=== PATIENT | male | born 2000 | race African-American/Black ===

== ENCOUNTER 2020-06-14 10:49 | Emergency (ER) | payer OTHER ==
--- NOTE | 2020-06-14 12:08 | EDPHYS ---
Physician Documentation [facility] Name: Tesys Lou Age: 20 yrs Sex: Male : 2000 Arrival Date: 06/14/2020 Time: 10:53 Bed 7 Private MD: ED Physician Roland Vang HPI: 06/14 12:00 This 20 yrs old Black Male presents to ER via Ambulatory with complaints of Congestion, jr8 Fever. 12:00 The patient reports fever, with an emergency department temperature of 100 degrees jr8 Fahrenheit. Onset: The symptoms/episode began/occurred acutely, 2 day(s) ago. Modifying factors: The patient has had contact with sick friend. Associated signs and symptoms: Pertinent positives: sinus congestion, loss of taste. Severity of symptoms: At their worst the symptoms were mild in the emergency department the symptoms are unchanged. The patient has not experienced similar symptoms in the past. The patient has not recently seen a physician. Patient stated that he was in contact with friends who tested positive for COVID. Now having taste difference, fever, and sinus congestion . Historical: - Allergies: 11: NKDA; hb - Home Meds: 11: None [Active]; hb - PMHx: 11:01 ADD/ADHD; Anxiety; Bipolar disorder; MR; hb - PSHx: 11: None; hb - Immunization history:: Adult Immunizations up to date. - Social history:: Smoking status: Patient denies any tobacco usage or history of. ROS: 12:00 Eyes: Negative for injury, pain, redness, and discharge, Neck: Negative for injury, jr8 pain, and swelling, Cardiovascular: Negative for chest pain, palpitations, and edema, Respiratory: Negative for shortness of breath, cough, wheezing, and pleuritic chest pain, Abdomen/GI: Negative for abdominal pain, nausea, vomiting, diarrhea, and constipation, Back: Negative for injury and pain, MS/Extremity: Negative for injury and deformity, Skin: Negative for injury, rash, and discoloration, Neuro: Negative for headache, weakness, numbness, tingling, and seizure. 12:00 Constitutional: Positive for fever. 12:00 ENT: Positive for sinus congestion. Exam: 12:00 Eyes: Pupils equal round and reactive to light, extra-ocular motions intact. Lids and jr8 lashes normal. Conjunctiva and sclera are non-icteric and not injected. Cornea within normal limits. Periorbital areas with no swelling, redness, or edema. ENT: Nares patent. No nasal discharge, no septal abnormalities noted. Tympanic membranes are normal and external auditory canals are clear. Oropharynx with no redness, swelling, or masses, exudates, or evidence of obstruction, uvula midline. Mucous membranes moist. Neck: Trachea midline, no thyromegaly or masses palpated, and no cervical lymphadenopathy. Supple, full range of motion without nuchal rigidity, or vertebral point tenderness. No Meningismus. Cardiovascular: Regular rate and rhythm with a normal S1 and S2. No gallops, murmurs, or rubs. Normal PMI, no JVD. No pulse deficits. Respiratory: Lungs have equal breath sounds bilaterally, clear to auscultation and percussion. No rales, rhonchi or wheezes noted. No increased work of breathing, no retractions or nasal flaring. Abdomen/GI: Soft, non-tender, with normal bowel sounds. No distension or tympany. No guarding or rebound. No evidence of tenderness throughout. Back: No spinal tenderness. No costovertebral tenderness. Full range of motion. Skin: Warm, dry with normal turgor. Normal color with no rashes, no lesions, and no evidence of cellulitis. MS/ Extremity: Pulses equal, no cyanosis. Neurovascular intact. Full, normal range of motion. Neuro: Awake and alert, GCS 15, oriented to person, place, time, and situation. Cranial nerves II-XII grossly intact. Motor strength 5/5 in all extremities. Sensory grossly intact. Cerebellar exam normal. Normal gait. Vital Signs: 10:59 BP 134 / 69; Pulse 105; Resp 16; Temp 100(TE); Pulse Ox 100% on R/A; Weight 81.65 kg; hb Height 6 ft. 4 in. (193.04 cm); Pain 4/10; 12:15 BP 127 / 75; Pulse 85; Resp 17; Temp 98.9; Pulse Ox 100% ; bp 10:59 Body Mass Index 21.91 (81.65 kg, 193.04 cm) hb MDM: 11:13 Patient medically screened. jr8 12:00 Data reviewed: vital signs, nurses notes, lab test result(s), and as a result, I will jr8 discharge patient. Data interpreted: Pulse oximetry: on room air is 100 %. Interpretation: normal. Counseling: I had a detailed discussion with the patient and/or guardian regarding: the historical points, exam findings, and any diagnostic results supporting the discharge/admit diagnosis, lab results, the need for outpatient follow up, a family practitioner, to return to the emergency department if symptoms worsen or persist or if there are any questions or concerns that arise at home. 06/14 11:12 Order name: Strep jr8 06/14 11:43 Order name: COVID-19 jr8 Administered Medications: No medications were administered Disposition: 15:43 Co-signature as Attending Physician, Roland Vang MD I agree with the assessment and kdr plan of care. Disposition: 06/14/20 12:07 Discharged to Home. Impression: Viral infection, unspecified. - Condition is Stable. - Discharge Instructions: COVID-19. - Medication Reconciliation Form, Thank You Letter, Antibiotic Education, Prescription Opioid Use form. - Follow up: Private Physician; When: 1 week; Reason: Recheck today's complaints, Continuance of care, Re-evaluation by your physician. - Problem is new. - Symptoms have improved. Signatures: Dispatcher [employer] EDMS Roland Vang MD MD [facility] Boni Ramirez PA PA jr8 Alannah Sommers, RN RN Uvaldo Tomlinson RN RN bp Corrections: (The following items were deleted from the chart) 12:16 12:07 06/14/2020 12:07 Discharged to Home. Impression: Viral infection, unspecified. bp Condition is Stable. Forms are Medication Reconciliation Form, Thank You Letter, Antibiotic Education, Prescription Opioid Use. Follow up: Private Physician; When: 1 week; Reason: Recheck today's complaints, Continuance of care, Re-evaluation by your physician. Problem is new. Symptoms have improved. jr8
--- NOTE | 2020-06-14 12:08 | ER ---
Nurse's Notes [facility] Name: Tessy Lou Age: 20 yrs Sex: Male : 2000 Arrival Date: 06/14/2020 Time: 10:53 Bed 7 Private MD: Diagnosis: Viral infection, unspecified Presentation: 06/14 10:59 Chief complaint: Headache, sore throat, nonproductive cough, and sinus congestion x 4 hb days. Coronavirus screen: Patient reports a cough. Patient denies shortness of breath or difficulty breathing. Patient reports a measured and/or subjective temperature greater than 100.4F. Patient denies travel on a cruise ship or to a country the [facility] currently lists as an affected area. Patient denies contact with known and/or suspected case of COVID-19. Patient instructed to continue to wear a mask when interacting with others. Patient moved to private room, placed in contact and droplet isolation with eye protection until further assessment. Ebola Screen: No symptoms or risks identified at this time. Initial Sepsis Screen: Does the patient meet any 2 criteria? No. Patient's initial sepsis screen is negative. Does the patient have a suspected source of infection? No. Patient's initial sepsis screen is negative. Risk Assessment: Do you want to hurt yourself or someone else? Patient reports no desire to harm self or others. Onset of symptoms was June 10, 2020. 10:59 Method Of Arrival: Ambulatory hb 10:59 Acuity: ANTONI 3 hb Triage Assessment: 11:00 General: Appears in no apparent distress. comfortable, Behavior is cooperative, bp appropriate for age, anxious. Pain: Complains of pain in SORE THROAT. EENT: No deficits noted. Neuro: No deficits noted. Cardiovascular: No deficits noted. Respiratory: Breath sounds are clear bilaterally. GI: No signs and/or symptoms were reported involving the gastrointestinal system. : No signs and/or symptoms were reported regarding the genitourinary system. Derm: No deficits noted. Musculoskeletal: No deficits noted. Historical: - Allergies: 11: NKDA; hb - Home Meds: 11: None [Active]; hb - PMHx: 11:01 ADD/ADHD; Anxiety; Bipolar disorder; MR; hb - PSHx: 11: None; hb - Immunization history:: Adult Immunizations up to date. - Social history:: Smoking status: Patient denies any tobacco usage or history of. Screenin:00 Abuse screen: Denies threats or abuse. Denies injuries from another. Nutritional bp screening: No deficits noted. Tuberculosis screening: No symptoms or risk factors identified. Fall Risk None identified. Assessment: 11:00 General: SEE TRIAGE NOTE. Cardiovascular: Patient's skin is warm and dry. Respiratory: bp Airway is patent Respiratory effort is even, unlabored, Respiratory pattern is regular, symmetrical. 12:14 Reassessment: PT REFUSING COVID SWAB. PT D/C HOME AMBULATORY, DX WITH UNSPECIFIED VIRAL bp ILLNESS. Respiratory: Breath sounds are clear bilaterally. Vital Signs: 10:59 BP 134 / 69; Pulse 105; Resp 16; Temp 100(TE); Pulse Ox 100% on R/A; Weight 81.65 kg; hb Height 6 ft. 4 in. (193.04 cm); Pain 4/10; 12:15 BP 127 / 75; Pulse 85; Resp 17; Temp 98.9; Pulse Ox 100% ; bp 10:59 Body Mass Index 21.91 (81.65 kg, 193.04 cm) hb ED Course: 10:53 Patient arrived in ED. as 11:00 Triage completed. hb 11:00 Patient has correct armband on for positive identification. Bed in low position. Call bp light in reach. Side rails up X2. 11:01 Arm band placed on. 11:12 [facility]. jr8 11:12 Roland Vang MD is Attending Physician. jr8 11:21 Uvaldo Henley, RN is Primary Nurse. bp 12:15 No provider procedures requiring assistance completed. Patient did not have IV access bp during this emergency room visit. Administered Medications: No medications were administered Outcome: 12:07 Discharge ordered by . jr8 12:15 Discharged to home ambulatory. bp 12:15 Condition: stable 12:15 Discharge instructions given to patient, Instructed on discharge instructions, follow up and referral plans. Demonstrated understanding of instructions, follow-up care. 12:16 Patient left the ED. bp Signatures: Gerda Singh Josh, PA PA jr8 Alannah Sommers RN RN Uvaldo Henley, AB RN bp
[2020-06-14 12:22] VITALS: O2SAT 100
[2020-06-14 12:23] VITALS: BP 127/75; TEMP 98.9
== END 2020-06-14 12:16 | disposition home or self-care (01) ==
LOC: ER 10:49
DX: B34.9 Viral infection, unspecified (principal)
CPT/HCPCS: 87070; 87081; 99281

== ENCOUNTER 2020-08-03 11:41 | Emergency (ER) | payer OTHER ==
--- NOTE | 2020-08-03 13:03 | EDPHYS ---
Physician Documentation [facility] Name: Tessy Lou Age: 20 yrs Sex: Male : 2000 Arrival Date: 08/03/2020 Time: 11:43 Bed 17 Private MD: ED Physician Sumit Tavarez HPI: 08/03 12:30 This 20 yrs old Black Male presents to ER via Ambulatory with complaints of Right pm1 clavicle bump. 12:30 The patient or guardian complains of pain, and bump. right clavicle. Context: The pm1 problem was sustained at home, resulted from an unknown reason, The patient reports no decreased range of motion. The patient reports no obvious deformity. Onset: The symptoms/episode began/occurred Noticed this AM. Modifying factors: the symptoms are alleviated by nothing. The symptoms are aggravated by nothing. Associated signs and symptoms: Pertinent negatives: abdominal pain, chest pain, shortness of breath. Severity of symptoms: in the emergency department the symptoms are unchanged. The patient has not experienced similar symptoms in the past. The patient has not recently seen a physician. Historical: - Allergies: 11:50 NKDA; ll1 - PMHx: 11:50 ADD/ADHD; Anxiety; Bipolar disorder; MR; ll1 - PSHx: 11:50 None; ll1 - Immunization history:: Flu vaccine is not up to date. - Social history:: Smoking status: Patient denies any tobacco usage or history of. Patient uses street drugs, marijuana, Patient/guardian denies using IV drugs. ROS: 12:30 Constitutional: Negative for fever, chills, and weight loss, Neck: Negative for injury, pm1 pain, and swelling, Cardiovascular: Negative for chest pain, palpitations, and edema, Respiratory: Negative for shortness of breath, cough, wheezing, and pleuritic chest pain, Abdomen/GI: Negative for abdominal pain, nausea, vomiting, diarrhea, and constipation, Back: Negative for injury and pain, MS/Extremity: Negative for injury and deformity, Skin: Negative for injury, rash, and discoloration, Neuro: Negative for headache, weakness, numbness, tingling, and seizure. Exam: 12:30 Constitutional: This is a well developed, well nourished patient who is awake, alert, pm1 and in no acute distress. Head/Face: Normocephalic, atraumatic. Neck: Trachea midline, no thyromegaly or masses palpated, and no cervical lymphadenopathy. Supple, full range of motion without nuchal rigidity, or vertebral point tenderness. No Meningismus. 12:30 Skin: Warm, dry with normal turgor. Normal color with no rashes, no lesions, and no evidence of cellulitis. 12:30 Chest/axilla: Exam negative for acute changes. 12:30 Cardiovascular: Exam negative for acute changes, Rate: normal, Rhythm: regular, Pulses: no pulse deficits are appreciated. 12:30 Respiratory: Exam negative for acute changes, respiratory distress, shortness of breath. 12:30 Back: Exam negative for acute changes. 12:30 Musculoskeletal/extremity: Extremities: grossly normal except: noted in the enlargement of the sternal extremity of right clavicle: 12:30 Neuro: Exam negative for acute changes, Orientation: is normal, Mentation: is normal, Motor: is normal, moves all fours, Sensation: is normal, no obvious gross deficits, Gait: is steady, at a normal pace, without difficulty. Vital Signs: 11:49 BP 121 / 71; Pulse 90; Resp 16; Temp 98.5; Pulse Ox 99% ; Pain 1/10; ll1 MDM: 12:01 Patient medically screened. pm1 12:35 Data reviewed: vital signs. Data interpreted: Pulse oximetry: on room air is 99 %. pm1 Interpretation: normal. ED course: Patient refused pain medications. 12:57 Counseling: I had a detailed discussion with the patient and/or guardian regarding: the pm1 historical points, exam findings, and any diagnostic results supporting the discharge/admit diagnosis, radiology results, the need for outpatient follow up, to return to the emergency department if symptoms worsen or persist or if there are any questions or concerns that arise at home. 12:57 ED course: Patient does not want to wait for official read from radiologist. I reviewed pm1 x-ray and do not see any acute abnormalities. Will call the patient if there is any positive results from read. Patient requested sling, but informed him that a sling would not be appropriate for his complaint. 08/03 12:08 Order name: Clavicle Right XRAY pm1 Administered Medications: No medications were administered Disposition: 08/03/20 13:03 Discharged to Home. Impression: Localized swelling, mass and lump, neck - right clavicle. - Condition is Stable. - Medication Reconciliation Form, Thank You Letter, Antibiotic Education, Prescription Opioid Use form. - Follow up: Emergency Department; When: As needed; Reason: Worsening of condition. Follow up: Private Physician; When: 2 - 3 days; Reason: Recheck today's complaints, Continuance of care, Re-evaluation by your physician. - Problem is new. - Symptoms are unchanged. Addendum: 08/05/2020 10:49 Co-signature as Attending Physician, Sumit Tavarez MD I agree with the assessment and c barba plan of care. Signatures: Dispatcher [employer] EDMS Liz Medina RN RN aj1 Sumit Tavarez MD MD cha Marinas, Patrick, BUSINESS INSTRUCTOR BUSINESS INSTRUCTOR pm1 Elodia Jackson RN RN ll1 Corrections: (The following items were deleted from the chart) 08/03 13:11 13:03 08/03/2020 13:03 Discharged to Home. Impression: Localized swelling, mass and aj1 lump, neck - right clavicle. Condition is Stable. Forms are Medication Reconciliation Form, Thank You Letter, Antibiotic Education, Prescription Opioid Use. Follow up: Emergency Department; When: As needed; Reason: Worsening of condition. Follow up: Private Physician; When: 2 - 3 days; Reason: Recheck today's complaints, Continuance of care, Re-evaluation by your physician. Problem is new. Symptoms are unchanged. pm1
--- NOTE | 2020-08-03 13:03 | ER ---
Nurse's Notes [facility] Name: Tessy Lou Age: 20 yrs Sex: Male : 2000 Arrival Date: 08/03/2020 Time: 11:43 Bed 17 Private MD: Diagnosis: Localized swelling, mass and lump, neck-right clavicle Presentation: 08/03 11:49 Coronavirus screen: Client denies travel out of the [place] in the last 14 days. At this ll1 time, the client does not indicate any symptoms associated with coronavirus-19. Ebola Screen: Patient denies travel to an Ebola-affected area in the 21 days before illness onset. Initial Sepsis Screen: Does the patient meet any 2 criteria? No. Patient's initial sepsis screen is negative. Risk Assessment: Do you want to hurt yourself or someone else? Patient reports no desire to harm self or others. Onset of symptoms was August 02, 2020. 11:49 Method Of Arrival: Ambulatory ll1 11:49 Acuity: ANTONI 4 ll1 11:50 Chief complaint: Patient states: Noticed a bump to right clavicle area yesterday. ll1 Slight discomfort, no known trauma. Historical: - Allergies: 11:50 NKDA; ll1 - PMHx: 11:50 ADD/ADHD; Anxiety; Bipolar disorder; MR; ll1 - PSHx: 11:50 None; ll1 - Immunization history:: Flu vaccine is not up to date. - Social history:: Smoking status: Patient denies any tobacco usage or history of. Patient uses street drugs, marijuana, Patient/guardian denies using IV drugs. Screenin:31 Abuse screen: Denies threats or abuse. Denies injuries from another. Nutritional aj1 screening: No deficits noted. Tuberculosis screening: No symptoms or risk factors identified. Fall Risk None identified. Assessment: 12:31 General: Appears in no apparent distress. comfortable, Behavior is calm, cooperative, aj1 appropriate for age. Pain: Complains of pain in right clavicle Pain currently is 1 out of 10 on a pain scale. Neuro: Level of Consciousness is awake, alert, obeys commands, Oriented to person, place, time, situation. Cardiovascular: Patient's skin is warm and dry. Respiratory: Airway is patent Respiratory effort is even, unlabored, Respiratory pattern is regular, symmetrical. GI: No signs and/or symptoms were reported involving the gastrointestinal system. : No signs and/or symptoms were reported regarding the genitourinary system. EENT: No signs and/or symptoms were reported regarding the EENT system. Derm: Skin is pink, warm \T\ dry. normal. Musculoskeletal: Range of motion: intact in all extremities. Injury Description: Patient denies any known injury, states that he thinks he might have hurt it while playing basketball, but doesn't remember it hurting at the time. 13:11 Reassessment: Patient appears in no apparent distress at this time. No changes from aj1 previously documented assessment. Patient and/or family updated on plan of care and expected duration. Pain level reassessed. Patient is alert, oriented x 3, equal unlabored respirations, skin warm/dry/pink. Vital Signs: 11:49 BP 121 / 71; Pulse 90; Resp 16; Temp 98.5; Pulse Ox 99% ; Pain 1/10; ll1 ED Course: 11:43 Patient arrived in ED. ds1 11:50 Triage completed. ll1 11:50 Arm band placed on. ll1 12:01 Pepe Mckeon NP is PHCP. pm1 12:01 Sumit Tavarez MD is Attending Physician. pm1 12:29 Ginger Barreto RN is Primary Nurse. ll2 12:31 Patient has correct armband on for positive identification. Bed in low position. Call aj1 light in reach. Side rails up X 1. 12:31 No provider procedures requiring assistance completed. aj1 12:34 Liz Medina RN is Primary Nurse. aj1 12:41 Clavicle Right XRAY In Process Unspecified. EDMS 13:11 Patient did not have IV access during this emergency room visit. aj1 Administered Medications: No medications were administered Outcome: 13:03 Discharge ordered by . pm1 13:11 Discharged to home ambulatory. aj1 13:11 Condition: good 13:11 Discharge instructions given to patient, Instructed on discharge instructions, follow up and referral plans. Demonstrated understanding of instructions, follow-up care. 13:11 Patient left the ED. aj1 Signatures: Dispatcher [employer] EDOR Liz Medina RN RN aj1 Crystal Julien ds1 Pepe Mckeon NP MANUFACTURING PLANNER pm1 Ginger Barreto, RN RN ll2 Elodia Jackson, RN RN ll1
[2020-08-03 13:19] VITALS: BP 121/71; TEMP 98.5; O2SAT 99
--- NOTE | 2020-08-03 13:23 | RAD REPORT ---
EXAM DESCRIPTION: RAD - Clavicle Right - 08/03/2020 12:41 pm CLINICAL HISTORY: SWELLING, shoulder pain, basketball injury COMPARISON: No comparisons FINDINGS: No fracture of the clavicle seen. AC joint separation is present with the AC joint widene d to approximately 10-12 mm. No superior or inferior displacement of the clavicle relative to the AC joint. Acromial humeral joint space is normal with no abnormal soft tissue calcification. No suspicious finding in the visualized upper chest. IMPRESSION: Type II AC joint separation suspected given the 10-12 millimeter width of the joint spac e. No fracture or bone displacement. Comparison with the asymptomatic left AC joint may be helpful to ev aluate severity of separation.
== END 2020-08-03 13:11 | disposition home or self-care (01) ==
LOC: ER 11:41
DX: R22.1 Localized swelling, mass and lump, neck (principal)
CPT/HCPCS: 99283

== ENCOUNTER 2022-07-06 13:18 | Emergency (ER) | payer OTHER ==
[2022-07-06 16:33] LABS: Urine Blood Trace-lysed (Negative); Urine Glucose Negative (Negative); Urine Protein Negative (Negative); Urine Specific Gravity 1.015 (1.005-1.030); Urine pH 7.5 (5.0-7.0)
--- NOTE | 2022-07-06 16:33 | ER ---
[facility]'s [facility] Name: Tessy Lou Age: 22 yrs Sex: Male : 2000 Arrival Date: 07/06/2022 Time: 13:20 Bed Waiting Private MD: Diagnosis: Unspecified sexually transmitted disease;UTI/ Urinary tract infection, site not specified Presentation: 07/06 14:05 Chief complaint: Patient states: Burning w/ urination and penile d/c x 2-3 days, has ph recently had unprotected sex, denies abdominal pain or fever. Coronavirus screen: Vaccine status: Patient reports being unvaccinated. Ebola Screen: No symptoms or risks identified at this time. Initial Sepsis Screen: Does the patient meet any 2 criteria? No. Patient's initial sepsis screen is negative. Does the patient have a suspected source of infection? No. Patient's initial sepsis screen is negative. Risk Assessment: Do you want to hurt yourself or someone else? Patient reports no desire to harm self or others. Onset of symptoms was July 06, 2022. 14:05 Method Of Arrival: Ambulatory ph 14:05 Acuity: ANTONI 4 ph Historical: - Allergies: 14:07 NKDA; ph - PMHx: 14:07 ADD/ADHD; Anxiety; MR; Bipolar disorder; ph - Immunization history:: Adult Immunizations unknown. - Social history:: Smoking status: unknown. Vital Signs: 14:05 BP 114 / 81; Pulse 84; Resp 18; Temp 98.2; Pulse Ox 98% on R/A; Weight 81.65 kg; Height ph 6 ft. 4 in. (193.04 cm); 14:05 Body Mass Index 21.91 (81.65 kg, 193.04 cm) ph ED Course: 13:20 Patient arrived in ED. am2 13:34 Desmond Alfonso is PHCP. jl9 13:34 Bruce Stark DO is Attending Physician. jl9 14:06 Triage completed. ph 14:07 Arm band placed on Patient placed in waiting room, Patient notified of wait time. ph 16:55 No provider procedures requiring assistance completed. Patient did not have IV access jl7 during this emergency room visit. 17:10 Martha Dominique RN is Primary Nurse. jl7 Administered Medications: 16:45 Drug: Rocephin (cefTRIAXone) 500 mg Route: IM; Site: left deltoid; jl7 17:12 Follow up: Response: No adverse reaction jl7 16:45 Drug: AZITHromycin 1 grams Route: PO; jl7 17:11 Follow up: Response: No adverse reaction jl7 Medication: 16:56 VIS not applicable for this client. jl7 Outcome: 16:33 Discharge ordered by . [email or web address] 16:55 Discharged to home ambulatory. jl7 16:55 Condition: stable 16:55 Discharge instructions given to patient, Instructed on discharge instructions, follow up and referral plans. medication usage, Demonstrated understanding of instructions, follow-up care, medications, Prescriptions given X 1. 17:12 Patient left the ED. jl7 Signatures: Alyson Tellez, RN RN Martha Dominique RN RN jl7 Christi Xavier John jl9
--- NOTE | 2022-07-06 16:33 | EDPHYS ---
Physician Documentation [facility] Name: Tessy Lou Age: 22 yrs Sex: Male : 2000 Arrival Date: 07/06/2022 Time: 13:20 Bed Waiting Private MD: ED Physician Bruce Stark HPI: 07/06 14:46 This 22 yrs old Black Male presents to ER via Ambulatory with complaints of Pain With jl9 Urination, recent partner diagnosed with STD.. 14:46 Onset: The symptoms/episode began/occurred 3 day(s) ago. Associated signs and symptoms: jl9 Pertinent positives: dysuria. Modifying factors: the patient symptoms are aggravated by. Historical: - Allergies: 14:07 NKDA; ph - PMHx: 14:07 ADD/ADHD; Anxiety; MR; Bipolar disorder; ph - Immunization history:: Adult Immunizations unknown. - Social history:: Smoking status: unknown. ROS: 14:46 Constitutional: Negative for fever, chills, and weight loss, Eyes: Negative for injury, jl9 pain, redness, and discharge, ENT: Negative for injury, pain, and discharge, Neck: Negative for injury, pain, and swelling, Cardiovascular: Negative for chest pain, palpitations, and edema, Respiratory: Negative for shortness of breath, cough, wheezing, and pleuritic chest pain, Abdomen/GI: Negative for abdominal pain, nausea, vomiting, diarrhea, and constipation, Back: Negative for injury and pain. 14:46 MS/Extremity: Negative for injury and deformity, Skin: Negative for injury, rash, and discoloration, Neuro: Negative for headache, weakness, numbness, tingling, and seizure, Psych: Negative for depression, anxiety, suicide ideation, homicidal ideation, and hallucinations, Allergy/Immunology: Negative for hives, rash, and allergies, Endocrine: Negative for neck swelling, polydipsia, polyuria, polyphagia, and marked weight changes, Hematologic/Lymphatic: Negative for swollen nodes, abnormal bleeding, and unusual bruising. 14:46 : Positive for urinary symptoms, burning with urination, penile discharge. Exam: 14:47 Constitutional: This is a well developed, well nourished patient who is awake, alert, jl9 and in no acute distress. Head/Face: Normocephalic, atraumatic. Eyes: Pupils equal round and reactive to light, extra-ocular motions intact. Lids and lashes normal. Conjunctiva and sclera are non-icteric and not injected. Cornea within normal limits. Periorbital areas with no swelling, redness, or edema. ENT: Mucous membranes moist. Neck: Trachea midline, no thyromegaly or masses palpated, and no cervical lymphadenopathy. Supple, full range of motion without nuchal rigidity, or vertebral point tenderness. No Meningismus. Chest/axilla: Normal chest wall appearance and motion. Nontender with no deformity. No lesions are appreciated. Cardiovascular: Regular rate and rhythm with a normal S1 and S2. No gallops, murmurs, or rubs. Normal PMI, no JVD. No pulse deficits. Respiratory: Lungs have equal breath sounds bilaterally, clear to auscultation and percussion. No rales, rhonchi or wheezes noted. No increased work of breathing, no retractions or nasal flaring. Abdomen/GI: Soft, non-tender, with normal bowel sounds. No distension or tympany. No guarding or rebound. No evidence of tenderness throughout. Back: No spinal tenderness. No costovertebral tenderness. Full range of motion. Skin: Warm, dry with normal turgor. Normal color with no rashes, no lesions, and no evidence of cellulitis. MS/ Extremity: Pulses equal, no cyanosis. Neurovascular intact. Full, normal range of motion. Neuro: Awake and alert, GCS 15, oriented to person, place, time, and situation. Cranial nerves II-XII grossly intact. Motor strength 5/5 in all extremities. Sensory grossly intact. Cerebellar exam normal. Normal gait. Psych: Awake, alert, with orientation to person, place and time. Behavior, mood, and affect are within normal limits. Vital Signs: 14:05 BP 114 / 81; Pulse 84; Resp 18; Temp 98.2; Pulse Ox 98% on R/A; Weight 81.65 kg; Height ph 6 ft. 4 in. (193.04 cm); 14:05 Body Mass Index 21.91 (81.65 kg, 193.04 cm) ph MDM: 14:02 Patient medically screened. [facility] 14:47 Data reviewed: vital signs, nurses notes. 9 16:32 Counseling: I had a detailed discussion with the patient and/or guardian regarding: the jl9 historical points, exam findings, and any diagnostic results supporting the discharge/admit diagnosis, lab results, radiology results, the need for outpatient follow up. 07/06 16:33 Order name: Urine Dipstick-Ancillary; Complete Time: 21:52 EDMS 07/06 13:35 Order name: Urine Dipstick-Ancillary (obtain specimen); Complete Time: 17:11 jl9 Administered Medications: 16:45 Drug: Rocephin (cefTRIAXone) 500 mg Route: IM; Site: left deltoid; jl7 17:12 Follow up: Response: No adverse reaction jl7 16:45 Drug: AZITHromycin 1 grams Route: PO; jl7 17:11 Follow up: Response: No adverse reaction jl7 Disposition: 21:53 Co-signature as Attending Physician, Bruce THORPE was immediately available on-site ms3 in the Emergency Department for consultation in the care of the patient.. Disposition Summary: 07/06/22 16:33 Discharge Ordered Location: Home jl9 Condition: Stable jl9 Diagnosis - Unspecified sexually transmitted disease jl9 - UTI/ Urinary tract infection, site not specified jl9 Followup: jl9 - With: Private Physician - When: 1 - 2 days - Reason: Recheck today's complaints, Continuance of care, Re-evaluation by your physician Discharge Instructions: - Discharge Summary Sheet jl9 - Urinary Tract Infection, Adult, [id number] jl9 - Preventing Sexually Transmitted Infections, Adult jl9 Forms: - Medication Reconciliation Form jl9 - Thank You Letter jl9 - Antibiotic Education jl9 - Prescription Opioid Use jl9 Prescriptions: - Doxycycline Hyclate 100 mg Oral Tablet - take 1 tablet by ORAL route every 12 hours; 14 tablet; Refills: 0, Product jl9 Selection Permitted Signatures: Alyosn Tellez, RN RN Martha Garcia RN RN jlBruce Pastor DO DO ms3 Desmond Alfonso jl9 Corrections: (The following items were deleted from the chart) 15:38 14:46 This 22 yrs old Black Male presents to ER via Ambulatory with complaints of Pain jl9 With Urination. jl9
[2022-07-06] MEDS ORDERED: LIDOCAINE 1% MPF 2 ML AMPULE ONE (16:51)
[2022-07-06] MEDS ORDERED: CEFTRIAXONE 500 MG/VIAL ONE (16:51)
[2022-07-06] MEDS ORDERED: AZITHROMYCIN 250 MG TAB ONE (16:51)
[2022-07-06 17:25] VITALS: BP 114/81; TEMP 98.2; O2SAT 98
== END 2022-07-06 17:12 | disposition home or self-care (01) ==
LOC: ER 13:18
DX: N39.0 Urinary tract infection, site not specified (principal); A64 Unspecified sexually transmitted disease
CPT/HCPCS: 81003; J0696; 96372; 99283

== ENCOUNTER 2022-11-22 10:30 | Emergency (ER) | payer OTHER ==
--- NOTE | 2022-11-22 12:27 | EDPHYS ---
Physician Documentation [facility] Name: Tessy Lou Age: 22 yrs Sex: Male : 2000 Arrival Date: 11/22/2022 Time: 10:34 Bed 9 Private MD: ED Physician Wade Sanchez HPI: 11/22 11:22 This 22 yrs old Black Male presents to ER via Ambulatory with complaints of Shoulder en Pain. 11:22 22 yo RHD male presents to ED with right medial clavicle pain at sterno-clavicular en joint x 2 months after falling on lateral shoulder. Pt was playing basketball 2 months ago when he landed on lateral shoulder. Seen in ED here with negative XR of shoulder. No new trauma. Pain is over sterno-clavicular joint when lays on right side to sleep but no pain with ROM or overhead activity. . Historical: - Allergies: 11:17 NKDA; kr3 - PMHx: 11:17 ADD/ADHD; Anxiety; Bipolar disorder; MR; kr3 - Immunization history:: Adult Immunizations not up to date. - Social history:: Smoking status: Reported history of juuling and/or vaping. ROS: 11:22 Constitutional: Negative for fever, chills, and weight loss, Eyes: Negative for injury, en pain, redness, and discharge, Cardiovascular: Negative for chest pain, palpitations, and edema, Respiratory: Negative for shortness of breath, cough, wheezing, and pleuritic chest pain, Abdomen/GI: Negative for abdominal pain, nausea, vomiting, diarrhea, and constipation, MS/Extremity: FROM right shoulder. NVI. No shoulder or clavicle TTP. No step offs or crepitus. Unable to reproduce pain on current exam Exam: 11:22 Constitutional: This is a well developed, well nourished patient who is awake, alert, en and in no acute distress. 11:22 Constitutional: The patient appears in no acute distress, alert, awake. 11:22 Chest/axilla: Inspection: normal, deformity, is not appreciated. 11:22 Cardiovascular: Rate: normal, Rhythm: regular, Pulses: no pulse deficits are appreciated. 11:22 Respiratory: the patient does not display signs of respiratory distress, Respirations: normal, Breath sounds: are clear throughout. 11:22 Musculoskeletal/extremity: FROM RUE without TTP, swelling or deformity. Unable to reproduce pain on palpation of clavicle or sternum. Vital Signs: 11:14 BP 129 / 78; Pulse 95; Resp 18; Temp 99.4; Pulse Ox 100% on R/A; Weight 81.65 kg; kr3 Height 6 ft. 0 in. (182.88 cm); Pain 7/10; 11:14 Body Mass Index 24.41 (81.65 kg, 182.88 cm) kr3 MDM: 11:22 Patient medically screened. en 11:22 Differential diagnosis: occult fx vs ligamentous injury to sterno-clavicular jt. en Considered CT vs MRI of area, but not warranted on an emergent basis. Will repeat XR to evaluate for possible occult fx vs nonunion. Data reviewed: vital signs, nurses notes. 12:25 ED course: Spoke with pt and partner. Does not want XR. Would like to go home. Ok for en d/c. Encouraged OTC alleve. no pain medication at this time. And PCP f/u prn. Administered Medications: No medications were administered Disposition: 13:52 Co-signature as Attending Physician, Wade Sanchez MD. rn Disposition Summary: 11/22/22 12:27 Discharge Ordered Location: Home en Problem: chronic en Symptoms: are unchanged en Condition: Stable en Diagnosis - sternoclavicular strain en Followup: en - With: Private Physician - When: As needed - Reason: Re-evaluation by your physician Discharge Instructions: - Discharge Summary Sheet en - Muscle Strain en - Chest Wall Pain, [id number] en Forms: - Medication Reconciliation Form en - Thank You Letter en - Antibiotic Education en - Prescription Opioid Use en Signatures: Dispatcher [employer] EDMS Wade Sanchez MD MD rn Newkirk, Elizabeth, PA PA en Reid, Kelley RN RN kr3 Corrections: (The following items were deleted from the chart) 12:10 11:23 Clavicle Right+[email or web address] ordered. EDKS EDMS
--- NOTE | 2022-11-22 12:27 | ER ---
Nurse's Notes [facility] Name: Tessy Lou Age: 22 yrs Sex: Male : 2000 Arrival Date: 11/22/2022 Time: 10:34 Bed 9 Private MD: Diagnosis: sternoclavicular strain Presentation: 11/22 11:14 Chief complaint: Patient states: I am having shoulder pain on the right side up by my kr3 collar bone. It hurts when I'm sleeping and in a ball but helps if I lay flat. States "I can handle the pain flor I'm a thug". Coronavirus screen: Vaccine status: Patient reports being unvaccinated. Client denies travel out of the [place] in the last 14 days. Ebola Screen: Patient denies travel to an Ebola-affected area in the 21 days before illness onset. Initial Sepsis Screen: Does the patient meet any 2 criteria? No. Patient's initial sepsis screen is negative. Does the patient have a suspected source of infection? No. Patient's initial sepsis screen is negative. Risk Assessment: Do you want to hurt yourself or someone else? Patient reports no desire to harm self or others. Onset of symptoms was October 01, 2022. 11:14 Method Of Arrival: Ambulatory 3 11:14 Acuity: ANTONI 3 kr3 Triage Assessment: 11:18 General: Appears in no apparent distress. comfortable, Behavior is calm, cooperative. kr3 Pain: Complains of pain in clavical area. Historical: - Allergies: 11:17 NKDA; kr3 - PMHx: 11:17 ADD/ADHD; Anxiety; Bipolar disorder; MR; kr3 - Immunization history:: Adult Immunizations not up to date. - Social history:: Smoking status: Reported history of juuling and/or vaping. Assessment: 12:05 General: X-ray at bedside, unable to locate pt. . kb3 Vital Signs: 11:14 BP 129 / 78; Pulse 95; Resp 18; Temp 99.4; Pulse Ox 100% on R/A; Weight 81.65 kg; kr3 Height 6 ft. 0 in. (182.88 cm); Pain 7/10; 11:14 Body Mass Index 24.41 (81.65 kg, 182.88 cm) kr3 ED Course: 10:34 Patient arrived in ED. rg4 10:35 Myrna Pringle PA is PHCP. en 10:35 Wade Sanchez MD is Attending Physician. en 11:17 Triage completed. kr3 11:54 Lalitha Oscar, RN is Primary Nurse. kb3 Administered Medications: No medications were administered Outcome: 12:27 Discharge ordered by MD. en 12:29 Discharged to home kb3 12:29 Condition: stable 12:29 Discharge instructions given to Pt left before instructions provided 12:29 Patient left the ED. kb3 Signatures: Valentina Powers rg4 Myrna Pringle PA PA Dolores Haley RN RN kr3 Lalitha Oscar, RN RN kb3
[2022-11-22 12:33] VITALS: BP 129/78; TEMP 99.4; O2SAT 100
== END 2022-11-22 12:29 | disposition home or self-care (01) ==
LOC: ER 10:30
DX: S46.811A Strain of other muscles, fascia and tendons at shoulder and upper arm level, right arm, initial encounter (principal)
CPT/HCPCS: 99281